=== PATIENT | male | born 1985 ===

== ENCOUNTER 2017-09-03 14:26 | Emergency (ER) | payer SELFPAY ==
[~2017-09-03] VITALS: Ht 180.3 cm; Wt 76.2 kg
[2017-09-03] MEDS ORDERED: Prednisone20 MG PO (15:38)
== END 2017-09-03 15:42 | disposition home or self-care (01) ==
LOC: ER 14:26
DX: L23.7 Allergic contact dermatitis due to plants, except food (principal); Z88.1 Allergy status to other antibiotic agents
CPT/HCPCS: 99282